=== PATIENT | female | born 1995 | race Caucasian/White ===

== ENCOUNTER 2017-09-09 06:58 | Inpatient (IN) | payer BC, MEDICAID ==
[2017-09-09] MEDS ORDERED: Sodium Chloride 0.9% 10 ML Syringe FLUSH PRN (07:17)
[2017-09-09] MEDS ORDERED: Misoprostol 25 MCG (1/4 of 100 MCG) Tab VAG ONE (07:32)
[2017-09-09] MEDS: Calcium Carbonate 500 MG Tab.Chew PO PRN ×2 (08:21→16:40)
[2017-09-09] MEDS: Lactated Ringers 1,000 ML IV SCH ×3 (13:35→23:09)
--- NOTE | 2017-09-09 19:01 | PCM.LDHP ---
L&D History of Present Illness - General Date of Service: 09/09/17 Admit Problem/Dx: Patient Status Order with Admit Dx/Problem 09/09/17 07:18 Patient Status [ADT] Routine Admission Diagnosis/Problem Admission Diagnosis/Problem History Limitations: Reports: No Limitations - History of Present Illness Introduction:: admittted for Induction of laboer at 39+ weeks - Related Data Allergies/Adverse Reactions: Allergies Allergy/AdvReac Type Severity Reaction Status Date / Time shellfish derived Allergy Severe Anaphylactic Verified 09/09/17 10:55 Shock silicone Allergy Itching Verified 09/09/17 10:56 cinnamon Allergy Severe Hives Uncoded 09/09/17 10:50 latex Allergy Severe Hives Uncoded 09/09/17 10:53 mint Allergy Other Uncoded 09/09/17 10:52 powder Allergy Other Uncoded 09/09/17 10:54 Home Medications: Home Meds Pnv No.28/Ferrous Fumarate/FA [Theranatal Core Nutrition] 1 each PO DAILY [History] Past Medical History Gastrointestinal History: Reports: Other (See Below) Other Gastrointestinal History: heartburn garrick with ICE CREAM 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 L&D Exam - Exam Exam: See Below - Vital Signs Vital Signs: Last Vital Signs Temp 98 F 09/09/17 14:50 Pulse 78 09/09/17 18:03 Resp BP 112/72 09/09/17 13:46 Pulse Ox Weight: 79.107 kg - OB Specific Contraction Duration (sec): 60 Contraction Frequency (min): 1-2 Contraction Intensity: Mild to Moderate - Rosario Score Rosario Score Cervix Position: Posterior Rosario Score Consistency: Soft Rosario Score Effacement: 51-70% Rosario Score Dilation: 1-2 cm Rosario Score Infant's Station: -2 Rosario Score Total: 6 - Exam General: Alert, Oriented HEENT: PERRLA, Conjunctiva Clear, EACs Clear, EOMI, Hearing Intact, Mucosa Moist & [place], Nares Patent, Normal Nasal Septum, Posterior Pharynx Clear, TMs Clear Neck: Supple, Trachea Midline Lungs: Clear to Auscultation, Normal Respiratory Effort Cardiovascular: Regular Rate, Regular Rhythm GI/Abdominal Exam: Normal Bowel Sounds, Soft, Non-Tender, No Organomegaly, No Distention, No Abnormal Bruit, No Mass, Pelvis Stable Rectal Exam: Normal Exam, Normal Rectal Tone Genitourinary: Normal external exam, Normal bimanual exam, Normal speculum exam Back Exam: Normal Inspection, Full Range of Motion Extremities: Normal Inspection, Normal Range of Motion, Non-Tender, No Pedal Edema, Normal Capillary Refill Skin: Warm, Dry, Intact Neurological: Cranial Nerves Intact, Reflexes Equal Bilateral Psychiatric: Alert, Normal Affect, Normal Mood - Problem List (1) Term SNOMED Code(s): 19480879 ICD Code: Z34.80 - ENCOUNTER FOR SUPRVSN OF NORMAL , UNSP TRIMESTER Status: Acute Current Visit: Yes (2) Elective induction of labor planned SNOMED Code(s): 946996104 ICD Code: [id number] - Status: Acute Current Visit: Yes Problem List Initiated/Reviewed/Updated: Yes Orders Last 24hrs: Active Orders 24 hr Category Date Time Status Patient Status [ADT] Routine ADT 09/09/17 07:18 Active Communication Order [RC] ASDIRECTED Care 09/09/17 07:18 Active Communication Order [RC] ASDIRECTED Care 09/09/17 12:09 Active Notify Provider Vital Signs [RC] PRN Care 09/09/17 07:21 Active Notify Provider [RC] PRN Care 09/09/17 07:18 Active Notify Provider [RC] PRN Care 09/09/17 12:09 Active Notify Provider [RC] STAT Care 09/09/17 12:09 Active Vital Signs [RC] PER UNIT ROUTINE Care 09/09/17 07:18 Active Calcium Carbonate [Tums] Med 09/09/17 08:03 Active 1,000 mg PO Q2H PRN Lactated Ringers [Ringers, Lactated] 1,000 ml Med 09/09/17 12:15 Active IV ASDIRECTED Oxytocin/Normal Saline [Pitocin in NS 20 Units/1,000 ML Med 09/09/17 12:15 Active ] 20 unit in 1,000 ml IV TITRATE Sodium Chloride 0.9% [Saline Flush] Med 09/09/17 07:17 Active 10 ml FLUSH ASDIRECTED PRN Peripheral IV Insertion Adult [OM.PC] Routine Oth 09/09/17 12:14 Ordered Saline Lock Insert [OM.PC] Routine Oth 09/09/17 07:18 Ordered Resuscitation Status Routine Resus Stat 09/09/17 07:17 Ordered Medication Orders Calcium Carbonate/Glycine (Tums) 1,000 mg PO Q2H PRN PRN Reason: Indigestion Last Admin: 09/09/17 16:40 Dose: 1,000 mg Admin: 09/09/17 08:21 Dose: 1,000 mg Oxytocin/Sodium Chloride (Pitocin In Ns 20 Units/1,000 Ml) 20 unit in 1,000 mls @ 6 mls/hr IV TITRATE MANDI; Protocol Last Titration: 09/09/17 18:24 Dose: 0 munits/min, 0 mls/hr Titration: 09/09/17 16:30 Dose: 2 munits/min, 6 mls/hr Titration: 09/09/17 14:50 Dose: 0 munits/min, 0 mls/hr Admin: 09/09/17 13:36 Dose: 2 munits/min, 6 mls/hr Lactated Ringer's (Ringers, Lactated) 1,000 mls @ 125 mls/hr IV ASDIRECTED MANDI Last Admin: 09/09/17 13:35 Dose: 125 mls/hr Sodium Chloride (Saline Flush) 10 ml FLUSH ASDIRECTED PRN PRN Reason: Keep Vein Open Last Admin: 09/09/17 13:25 Dose: 10 ml Assessment/Plan Comment:: Cytotec induction,and augment with Pitocin.
[2017-09-09] MEDS ORDERED: fentaNYL 100 MCG/2 ML SDV EPIDUR ONE (22:29)
[2017-09-09] MEDS ORDERED: fentaNYL 300 MCG in Ropivacaine 200 ML EPIDUR ONE (22:29)
[2017-09-09] MEDS ORDERED: Naloxone 0.4 MG/ML SDV IVPUSH PRN (23:18)
[2017-09-09] MEDS ORDERED: diphenhydrAMINE 50 MG/ML SDV IV PRN (23:18)
[2017-09-09] MEDS ORDERED: Promethazine 12.5 MG in Sodium Chloride 0.9% 50 ML IV PRN (23:18)
[2017-09-09] MEDS ORDERED: ePHEDrine 50 MG/ML SDV IVPUSH ONE (23:18)
[2017-09-09] MEDS ORDERED: Ondansetron 4 MG/2 ML SDV IVPUSH PRN (23:18)
[2017-09-09] MEDS ORDERED: Lactated Ringers 500 ML IV SCH (23:30)
[2017-09-10] MEDS ORDERED: ePHEDrine 50 MG/ML SDV IV PRN (03:10)
--- NOTE | 2017-09-10 03:16 | DEL ---
DATE OF DELIVERY: 09/10/2017 PROCEDURE: 1. Spontaneous vertex vaginal delivery. 2. Periurethral first-degree perineal tear repair. ANESTHESIA: Epidural. PRODUCTS: 7 pounds 3 ounces baby with scores of 9 and 9, male, vigorous. ESTIMATED BLOOD LOSS: 300 mL. COMPLICATIONS: None. BRIEF DESCRIPTION: The patient was induced at 39+ weeks initially by Cytotec and then by augmentation with epidural. She was noted to be complete and pushing. Within a push, the baby's head delivered and the rest of the baby was delivered atraumatically with gentle traction. The baby was placed on the maternal abdomen with delay of clamping the cord to about 30 to 45 seconds and then cut and handed the baby to the nursery nurse after gently rubbing the baby and stimulation. Attention was turned to the placenta where cord blood was obtained. The placenta delivered fully intact 3 vessel. There was noted a first-degree tear in the midline 12 o'clock position, which was repaired by 4-0 Vicryl with no complications. Estimated blood loss was less than 300 mL. Pitocin was given, and the patient is stable at the delivery room with no complications. We will continue to follow routinely in the unit. /[id number] RADHA/JANUARY
[2017-09-10] MEDS: Ibuprofen 600 MG Tab PO PRN ×3 (09:50→19:58)
--- NOTE | 2017-09-11 09:04 | PCM.PNPP ---
- General Info Date of Service: 09/11/17 Functional Status: Reports: Pain Controlled - Review of Systems General: Reports: No Symptoms HEENT: Reports: No Symptoms Pulmonary: Reports: No Symptoms Cardiovascular: Reports: No Symptoms Gastrointestinal: Reports: No Symptoms Genitourinary: Reports: No Symptoms Musculoskeletal: Reports: No Symptoms Skin: Reports: No Symptoms Neurological: Reports: No Symptoms Psychiatric: Reports: No Symptoms - General Info Date of Service: 09/11/17 - Patient Data Vital Signs - Most Recent: Last Vital Signs Temp 98.1 F 09/10/17 19:40 Pulse 87 09/10/17 19:40 Resp 18 09/10/17 19:40 BP 107/69 09/10/17 19:40 Pulse Ox 96 09/10/17 19:40 Weight - Most Recent: 79.107 kg Med Orders - Current: Current Medications Calcium Carbonate/Glycine (Tums) 1,000 mg PO Q2H PRN PRN Reason: Indigestion Last Admin: 09/09/17 16:40 Dose: 1,000 mg Oxytocin/Sodium Chloride (Pitocin In Ns 20 Units/1,000 Ml) 20 unit in 1,000 mls @ 6 mls/hr IV TITRATE MANDI; Protocol Last Titration: 09/09/17 21:45 Dose: 0 munits/min, 0 mls/hr Lactated Ringer's (Ringers, Lactated) 1,000 mls @ 125 mls/hr IV ASDIRECTED MANDI Last Admin: 09/09/17 23:09 Dose: 125 mls/hr Ibuprofen (Motrin) 600 mg PO Q4H PRN PRN Reason: Pain Last Admin: 09/10/17 19:58 Dose: 600 mg Sodium Chloride (Saline Flush) 10 ml FLUSH ASDIRECTED PRN PRN Reason: Keep Vein Open Last Admin: 09/09/17 13:25 Dose: 10 ml Discontinued Medications Diphenhydramine HCl (Benadryl) 25 mg IV ONETIME PRN PRN Reason: Pruritus Ephedrine Sulfate (Ephedrine Sulfate) 5 mg IVPUSH ONETIME ONE Stop: 09/09/17 23:19 Last Admin: 09/10/17 00:44 Dose: Not Given Ephedrine Sulfate (Ephedrine Sulfate) 5 mg IV ASDIRECTED PRN PRN Reason: Hypotension Fentanyl (Sublimaze) 100 mcg EPIDUR .STK-MED ONE Stop: 09/09/17 22:30 Lactated Ringer's (Ringers, Lactated) 500 mls @ 999 mls/hr IV .BOLUS MANDI Promethazine HCl 12.5 mg/ (Sodium Chloride) 50.5 mls @ 200 mls/hr IV Q6H PRN PRN Reason: Nausea/Vomiting Fentanyl 300 mcg/ Ropivacaine 206 mls @ as directed EPIDUR .STK-MED ONE Stop: 09/09/17 22:30 Misoprostol (Cytotec) 25 mcg VAG ONETIME ONE Stop: 09/09/17 07:33 Last Admin: 09/09/17 07:50 Dose: 25 mcg Naloxone HCl (Narcan) 0.1 mg IVPUSH ONETIME PRN PRN Reason: Sedation Ondansetron HCl (Zofran) 4 mg IVPUSH Q6H PRN PRN Reason: Nausea/Vomiting - Infant Interaction Disposition, : [place] to Nursery Feeding: Attempted ; Nursed Fair/Poor Support Person: - Recovery Exam Fundal Tone: Firm Fundal Level: At Umbilicus Fundal Placement: Midline Lochia Amount: Small Lochia Color: Rubra/Red Perineum Description: Intact, Minimal Bruising/Swelling Episiotomy/Laceration: Approximated Bladder Status: Voiding Urinary Elimination: Voided - Exam General: Alert, Oriented HEENT: Pupils Equal Neck: Supple Lungs: Clear to Auscultation, Normal Respiratory Effort Cardiovascular: Regular Rate, Regular Rhythm GI/Abdominal Exam: Normal Bowel Sounds, Soft, Non-Tender, No Organomegaly, No Distention, No Abnormal Bruit, No Mass, Pelvis Stable Extremities: Normal Inspection, Normal Range of Motion, Non-Tender, No Pedal Edema, Normal Capillary Refill Skin: Warm, Dry, Intact Wound/Incisions: Healing Well Neurological: No New Focal Deficit Psy/Mental Status: Alert, Normal Affect, Normal Mood - Problem List & Annotations (1) Term SNOMED Code(s): 21564197 Code(s): Z34.80 - ENCOUNTER FOR SUPRVSN OF NORMAL , UNSP TRIMESTER Status: Acute Current Visit: Yes (2) Elective induction of labor planned SNOMED Code(s): 769121976 Code(s): YWL0754 - Status: Acute Current Visit: Yes (3) care and examination SNOMED Code(s): 391448577, 756056060, 208365035 Code(s): Z39.2 - ENCOUNTER FOR ROUTINE FOLLOW-UP Status: Acute Current Visit: Yes - Problem List Review Problem List Initiated/Reviewed/Updated: Yes - Plan Plan:: Has done very well.DC home today
--- NOTE | 2017-09-11 10:43 | DISCH ---
DISCHARGE DATE: 09/11/2017 REASON FOR ADMISSION: Induction of labor. DISCHARGE DIAGNOSIS: Spontaneous vaginal delivery. BRIEF HISTORY: This is a 21-year-old G2, who was admitted at term for induction of labor, which was performed by Cytotec and Pitocin. She delivered a live male infant vaginally with no complications. She did well postoperatively and is ready to go home today. DISCHARGE MEDICATIONS: Motrin p.r.n. and vitamins. FOLLOWUP: Follow up in 6 weeks after delivery. Please note that I spent more than 35 minutes in the discharge of the patient. /[id number] RADHA/JANUARY
== END 2017-09-11 10:25 | disposition home or self-care (01) | DRG 560 ==
LOC: FB.OB 06:58 → OBSVTOIN 21:45
PROVIDERS: ADMIT Family Medicine; ATTEND Family Medicine
PROC: 3E0P7VZ Introduction of Hormone into Female Reproductive, Via Natural or Artificial Opening (ICD-10-PCS; 2017-09-09)
PROC: 3E033VJ Introduction of Other Hormone into Peripheral Vein, Percutaneous Approach (ICD-10-PCS; 2017-09-09)
PROC: 10E0XZZ Delivery of Products of Conception, External Approach (ICD-10-PCS; principal; 2017-09-10)
PROC: 0HQ9XZZ Repair Perineum Skin, External Approach (ICD-10-PCS; 2017-09-10)
PROC: 6A550ZT Pheresis of Cord Blood Stem Cells, Single (ICD-10-PCS; 2017-09-10)
DX: O70.0 First degree perineal laceration during delivery (principal); Z3A.39 39 weeks gestation of pregnancy; Z37.0 Single live birth; Z87.891 Personal history of nicotine dependence; Z91.040 Latex allergy status; Z91.018 Allergy to other foods; Z91.013 Allergy to seafood
CPT/HCPCS: 59300; 59409; A9270-GY; J2590; J2795; J3010; J7050; J7120